=== PATIENT | female | born 1980 | race Caucasian/White ===

== ENCOUNTER 2016-08-21 18:15 | Emergency (ER) | payer MEDICAID ==
[~2016-08-21] VITALS: Ht 154.9 cm; Wt 52.3 kg
[~2016-08-21 18:15] MED LIST: ASPIRIN 32325 MG/TAB PO; ATIVAN0.5 MG PO; BCP TD; CALCIUM WITH VI1 TA1 PO; CATAPRES-TTS 10.1 M1 TD; COLACE 100100 MG/CAP PO; DAZIDOX10 MG PO; DEPAKOTE 250MG250 MG PO; DUO-KAPS1 CAP PO; FERROUS SU325 MG/TAB PO; FISH OIL 1000MG1 CAP PO; FLOMAX 0.40.4 MG/CAP PO; FOLIC ACID 11 MG/TA1 PO; FOLIC ACID PO; IRON325 M2 PO; KLOR-CON 1010 MEQ PO; KLOR-CON SPRINK8 MEQ PO; LIPITOR 10MG10 MG PO; LOPRESSOR 550 MG/TAB PO; LYRICA 50MG CAP50 MG PO; MACRODANTIN100 PO; MAG-OX 400400 MG/TAB PO; MAGNESI PO; MAGOX 400241.3 MG PO; MONISTAT 7 VAG45 GM VG; NICODERM C21 MG/PATC TD; NICODERM C21 MG/PATC TOP; NO HOME MEDICATIONS; OMEGA 31000 MG PO; OXY IR5 MG PO; PRILOSEC 20MG20 MG PO; REMERON30 MG PO; RISPERDAL M-TA0.5 MG PO; ROXICODONE 55 MG/TAB PO; ROXICODONE15 MG PO; THIAMINE 1100 MG/TAB PO; TOPAMAX50 MG PO; TYLENOL 500MG500 MG PO; ULTRAM 50MG TAB50 MG PO; VITAMIN C500 MG PO; VITAMIN D 50,1.25 MG PO; VITAMIN D32000 I1 PO; VITB PO; ZOFRAN ODT4 MG PO; ZOLOFT 50MG50 MG PO; [UNRECOGNIZED DRUG - OTHER] PO; [UNRECOGNIZED DRUG - OTHER] PO; [UNRECOGNIZED DRUG - OTHER] PO; [UNRECOGNIZED DRUG - OTHER] PO
[2016-08-21 18:26] VITALS: TEMP 99
[2016-08-21 18:52] VITALS: BP 119/75; PULSE 100
== END 2016-08-21 18:56 | disposition home or self-care (01) ==
LOC: COL.ER 18:15
DX: F32.9 Major depressive disorder, single episode, unspecified (principal); I10 Essential (primary) hypertension; F17.210 Nicotine dependence, cigarettes, uncomplicated

== ENCOUNTER 2016-08-31 22:19 | Emergency (ER) | payer MEDICAID ==
[~2016-08-31] VITALS: Ht 154.9 cm; Wt 52.3 kg
[2016-08-31 22:32] VITALS: BP 115/69; PULSE 81; TEMP 98.3
== END 2016-08-31 23:35 | disposition home or self-care (01) ==
LOC: COL.ER 22:19
DX: F10.20 Alcohol dependence, uncomplicated (principal)

== ENCOUNTER 2017-06-17 18:44 | Inpatient (IN) | payer MEDICAID ==
[~2017-06-17] VITALS: Ht 154.9 cm; Wt 52.6 kg
[2017-06-17 22:33] VITALS: BP 121/92; PULSE 118; TEMP 98.5
[2017-06-17 23:12] LABS: BASO % 0.3 % (0.0-2.0); GRAN # 4.7 (1.4-6.5); GRAN % 61.2 % (42.2-75.2); LYMPH # 2.4 (1.2-3.4); LYMPH % 31.2 % (20.0-51.0); MEAN CELL VOLUME 113 fl (80.0-100.0); MEAN CORPUSCULAR HGB CONC 33 g/dl (33.0-37.0); MONO # 0.5 (0.1-0.6); MONO % 6.9 % (1.7-9.3); PLATELET COUNT 203 K/mm3 (130-400); RED BLOOD COUNT 2.38 M/mm3 (4.10-5.30); REDCELL DISTRIBUTION WIDTH-CV 17.5 % (11.5-14.5)
[2017-06-17 23:16] LABS: HEMATOCRIT 26.8 % (37.0-47.0); HEMOGLOBIN 8.9 g/dl (12.5-16.0); MEAN CORPUSCULAR HEMOGLOBIN 37 pg (27.0-31.0)
[2017-06-17 23:19] LABS: ALBUMIN 2.1 gm/dL (3.5-5.0); BILIRUBIN,TOTAL 3.5 mg/dL (0.0-1.0); CALCIUM 7.4 mg/dL (8.4-10.2); CREATININE, serum 0.46 mg/dL (0.52-1.25); POTASSIUM 3.4 mmol/L (3.4-5.0)
[2017-06-17 23:21] LABS: INR 1.2 (0.8-3.0); PROTHROMBIN TIME 14.3 SECONDS (9.7-12.8)
[2017-06-17 23:23] LABS: PARTIAL THROMBOPLASTIN TIME 36.4 SECONDS (26.0-37.0)
[2017-06-17 23:47] LABS: ARTERIAL BLD GAS O2 SATURATION 95.3 % (92-100); ARTERIAL BLD GAS TCO2 CT 22.4; ARTERIAL BLOOD GAS BASE EXCESS 1.4 (-2-2); ARTERIAL BLOOD GAS HCO3 21.7 meq/L (22-26); ARTERIAL BLOOD GAS PCO2 22.6 mmHg (35-45); ARTERIAL BLOOD GAS PO2 76.7 mmHg (80-100)
[2017-06-18 01:22] VITALS: BP 100/61; PULSE 135; TEMP 99.7
[2017-06-18 03:19] LABS: BASO % 0.3 % (0.0-2.0); GRAN # 5.3 (1.4-6.5); GRAN % 72.8 % (42.2-75.2); LYMPH # 1.2 (1.2-3.4); LYMPH % 16.8 % (20.0-51.0); MEAN CELL VOLUME 113 fl (80.0-100.0); MEAN CORPUSCULAR HGB CONC 33 g/dl (33.0-37.0); MONO # 0.7 (0.1-0.6); MONO % 9.6 % (1.7-9.3); PLATELET COUNT 167 K/mm3 (130-400); RED BLOOD COUNT 2.06 M/mm3 (4.10-5.30)
[2017-06-18 03:20] LABS: HEMATOCRIT 23.3 % (37.0-47.0); HEMOGLOBIN 7.6 g/dl (12.5-16.0); MEAN CORPUSCULAR HEMOGLOBIN 37 pg (27.0-31.0)
[2017-06-18 03:30] LABS: CALCIUM 7.1 mg/dL (8.4-10.2); CREATININE, serum 0.5 mg/dL (0.52-1.25); MAGNESIUM 1.3 mg/dL (1.6-2.3); PHOSPHOROUS 3.3 mg/dL (2.5-4.5); POTASSIUM 3.3 mmol/L (3.4-5.0)
[2017-06-18 05:55] VITALS: BP 107/75; PULSE 128; TEMP 100
[2017-06-18 08:05] LABS: COLLECTION METHOD CLEAN CATCH
[2017-06-18 08:09] VITALS: BP 101/69; PULSE 122; TEMP 98.2
[2017-06-18 08:14] LABS: MUCOUS Present /lpf; PH 7 (5-8); URINE APPEARANCE Clear; URINE BACTERIA Rare /hpf; URINE BILIRUBIN Positive (NEGATIVE); URINE BLOOD Negative (NEGATIVE); URINE COLOR Amber; URINE GLUCOSE Negative (NEGATIVE); URINE KETONE Negative (NEGATIVE); URINE LEUKOCYTE ESTERASE Trace (NEGATIVE); URINE NITRATE Negative (NEGATIVE); URINE PROTEIN(semi-quant) 1+ (NEGATIVE); URINE UROBILINOGEN >=4.0 mg/dL (NEGATIVE)
[2017-06-18 08:29] LABS: TRICYCLIC ANTIDEPRESS URINE NEGATIVE
[2017-06-18 09:52] VITALS: BP 101/70; PULSE 128; TEMP 98.7
[2017-06-18 12:44] LABS: ALBUMIN 2.1 gm/dL (3.5-5.0); BILIRUBIN,TOTAL 4.6 mg/dL (0.0-1.0); CALCIUM 7.5 mg/dL (8.4-10.2); CREATININE, serum 0.5 mg/dL (0.52-1.25); POTASSIUM 3.9 mmol/L (3.4-5.0); TOTAL PROTEIN 6.1 gm/dL (6.4-8.2)
[2017-06-18 14:48] LABS: FOLATE (FOLIC ACID) 6.9 ng/mL (7.0-31.4)
[2017-06-18 16:00] VITALS: BP 121/79; PULSE 115; TEMP 98.7
[2017-06-18 20:00] VITALS: BP 116/81; PULSE 108; TEMP 97.9
[2017-06-19] VITALS (10 sets, daily range): BP systolic 88–127; BP diastolic 61–83; PULSE 91–122; TEMP 97.7–98.9
[2017-06-19 07:15] LABS: BASO % 0.2 % (0.0-2.0); EOS % 0.5 % (0-4.0); GRAN # 2.6 (1.4-6.5); GRAN % 62.3 % (42.2-75.2); LYMPH # 1.3 (1.2-3.4); MEAN CORPUSCULAR HGB CONC 32 g/dl (33.0-37.0); MEAN PLATELET VOLUME 11.5 fl (7.4-10.4); MONO # 0.3 (0.1-0.6); MONO % 6.5 % (1.7-9.3); PLATELET COUNT 135 K/mm3 (130-400); REDCELL DISTRIBUTION WIDTH-CV 17.5 % (11.5-14.5)
[2017-06-19 07:18] LABS: HEMATOCRIT 22.4 % (37.0-47.0); HEMOGLOBIN 7.2 g/dl (12.5-16.0); MEAN CELL VOLUME 118 fl (80.0-100.0); MEAN CORPUSCULAR HEMOGLOBIN 38 pg (27.0-31.0)
[2017-06-19 07:29] LABS: ALBUMIN 1.8 gm/dL (3.5-5.0); BILIRUBIN,TOTAL 3.6 mg/dL (0.0-1.0); CALCIUM 7.5 mg/dL (8.4-10.2); CREATININE, serum 0.55 mg/dL (0.52-1.25); MAGNESIUM 1.9 mg/dL (1.6-2.3); TOTAL PROTEIN 5.6 gm/dL (6.4-8.2)
[2017-06-20] VITALS (13 sets, daily range): BP systolic 99–120; BP diastolic 65–87; PULSE 87–115; TEMP 95.7–98.5
[2017-06-20 07:51] LABS: MEAN CELL VOLUME 120 fl (80.0-100.0); MEAN CORPUSCULAR HGB CONC 31 g/dl (33.0-37.0); MEAN PLATELET VOLUME 11.8 fl (7.4-10.4); PLATELET COUNT 140 K/mm3 (130-400); RED BLOOD COUNT 1.83 M/mm3 (4.10-5.30); REDCELL DISTRIBUTION WIDTH-CV 17.6 % (11.5-14.5)
[2017-06-20 07:55] LABS: HEMOGLOBIN 6.8 g/dl (12.5-16.0); MEAN CORPUSCULAR HEMOGLOBIN 37 pg (27.0-31.0)
[2017-06-20 10:43] LABS: ANISOCYTOSIS 2+; BAND 35 % (0-10); BASOPHIL 1 % (0-2); LYMPHOCYTE 32 % (20.0-51.0); NEUTROPHILS 32 % (42.0-75.2); PLATELET ESTIMATE NORMAL (NORMAL)
[2017-06-20 10:44] LABS: HYPOCHROMIA 1+
[2017-06-21] VITALS (10 sets, daily range): BP systolic 100–134; BP diastolic 70–89; PULSE 68–118; TEMP 98.1–98.6
[2017-06-21 06:45] LABS: BASO % 0.2 % (0.0-2.0); EOS % 0.7 % (0-4.0); GRAN # 2.4 (1.4-6.5); GRAN % 54.1 % (42.2-75.2); LYMPH # 1.5 (1.2-3.4); LYMPH % 34.4 % (20.0-51.0); MEAN CORPUSCULAR HGB CONC 32 g/dl (33.0-37.0); MEAN PLATELET VOLUME 11.4 fl (7.4-10.4); MONO # 0.4 (0.1-0.6); MONO % 10.1 % (1.7-9.3); PLATELET COUNT 140 K/mm3 (130-400); RED BLOOD COUNT 2.27 M/mm3 (4.10-5.30); REDCELL DISTRIBUTION WIDTH-CV 21.8 % (11.5-14.5)
[2017-06-21 06:55] LABS: HEMATOCRIT 25.8 % (37.0-47.0); HEMOGLOBIN 8.3 g/dl (12.5-16.0); MEAN CELL VOLUME 114 fl (80.0-100.0); MEAN CORPUSCULAR HEMOGLOBIN 37 pg (27.0-31.0)
[2017-06-21 06:56] LABS: ALBUMIN 2.1 gm/dL (3.5-5.0); BILIRUBIN,TOTAL 2.5 mg/dL (0.0-1.0); CALCIUM 7.8 mg/dL (8.4-10.2); CREATININE, serum 0.47 mg/dL (0.52-1.25); POTASSIUM 3.5 mmol/L (3.4-5.0); TOTAL PROTEIN 5.9 gm/dL (6.4-8.2)
[2017-06-22 00:11] VITALS: BP 114/82; PULSE 78; TEMP 98.5
[2017-06-22 04:36] VITALS: BP 108/69; PULSE 76; TEMP 98.2
[2017-06-22 06:53] LABS: HEMATOCRIT 27.6 % (37.0-47.0); HEMOGLOBIN 8.8 g/dl (12.5-16.0)
[2017-06-22 08:13] VITALS: BP 113/75; PULSE 76; TEMP 97.6
[2017-06-22 10:14] VITALS: BP 112/74; PULSE 95; TEMP 98
[2017-06-22] MEDS ORDERED: FERROUS SU325 MG/TAB PO (13:11)
[2017-06-22] MEDS ORDERED: VITAMIN C500 MG PO (13:13)
[2017-06-22] MEDS ORDERED: ASPIRIN 32325 MG/TA1 PO (13:14)
[2017-06-22 13:47] VITALS: BP 118/80; PULSE 77; TEMP 98.1
[2017-06-22] MEDS ORDERED: IPRATROPIUM BROM3 M1 IH (16:37)
[2017-06-22] MEDS ORDERED: NICODERM C21 MG/PATC TD (16:38)
[2017-06-22] MEDS ORDERED: ROXICODONE 55 MG/TAB PO (16:40)
== END 2017-06-22 18:55 | DRG 854 ==
LOC: SURG 18:44
PROVIDERS: Family Medicine; Internal Medicine; Nurse Practitioner Family; Orthopaedic Surgery Sports Medicine
PROC: 0Y6J0Z1 Detachment at Left Lower Leg, High, Open Approach (ICD-10-PCS; principal; 2017-06-18 16:30)
DX: A41.9 Sepsis, unspecified organism (principal); M86.172 Other acute osteomyelitis, left ankle and foot; E87.1 Hypo-osmolality and hyponatremia; E44.0 Moderate protein-calorie malnutrition; E87.3 Alkalosis; D62 Acute posthemorrhagic anemia; I10 Essential (primary) hypertension; Z98.84 Bariatric surgery status; F31.9 Bipolar disorder, unspecified; F17.210 Nicotine dependence, cigarettes, uncomplicated; E87.6 Hypokalemia; E83.42 Hypomagnesemia; F10.20 Alcohol dependence, uncomplicated
CPT/HCPCS: 99222-AI; 99223-AI; 99231-AI; 99232-AI; 99239; J0690; J1885; J2060; J2250; J2270; J2370; J2405; J2543; J2550; J2704; J3010; J3370; J3475; J3480; J7050; J7120; P9016

== ENCOUNTER 2017-06-22 16:45 | Inpatient (IN) | payer MEDICAID ==
[~2017-06-22] VITALS: Ht 154.9 cm; Wt 45.7 kg
[~2017-06-22 16:45] MED LIST changes: +ASPIRIN 32325 MG/TA1 PO; +IPRATROPIUM BROM3 M1 IH
[2017-06-22 19:39] VITALS: BP 114/79; PULSE 86; TEMP 98.2
[2017-06-23 06:22] VITALS: BP 112/74; PULSE 62; TEMP 97.9
[2017-06-23 18:52] VITALS: BP 121/79; PULSE 87; TEMP 98
[2017-06-24 06:26] VITALS: BP 103/75; PULSE 68; TEMP 97.8
[2017-06-24 06:45] LABS: MEAN CORPUSCULAR HGB CONC 31 g/dl (33.0-37.0); MEAN PLATELET VOLUME 11.5 fl (7.4-10.4); PLATELET COUNT 200 K/mm3 (130-400); RED BLOOD COUNT 2.37 M/mm3 (4.10-5.30); REDCELL DISTRIBUTION WIDTH-CV 20.6 % (11.5-14.5)
[2017-06-24 06:56] LABS: BILIRUBIN,TOTAL 1.2 mg/dL (0.0-1.0); CALCIUM 7.7 mg/dL (8.4-10.2); CREATININE, serum 0.54 mg/dL (0.52-1.25); MAGNESIUM 1.9 mg/dL (1.6-2.3); POTASSIUM 3.4 mmol/L (3.4-5.0); TOTAL PROTEIN 5.7 gm/dL (6.4-8.2)
[2017-06-24 06:57] LABS: HEMATOCRIT 28.3 % (37.0-47.0); HEMOGLOBIN 8.8 g/dl (12.5-16.0); MEAN CELL VOLUME 119 fl (80.0-100.0); MEAN CORPUSCULAR HEMOGLOBIN 37 pg (27.0-31.0)
[2017-06-24 08:18] LABS: BAND 6 % (0-10); HYPOCHROMIA 1+; LYMPHOCYTE 59 % (20.0-51.0); NEUTROPHILS 29 % (42.0-75.2); PLATELET ESTIMATE NORMAL (NORMAL)
[2017-06-24 08:19] LABS: ANISOCYTOSIS 1+
[2017-06-24 20:56] VITALS: BP 105/74; PULSE 70; TEMP 98.3
[2017-06-25 06:28] VITALS: BP 114/68; PULSE 61; TEMP 98.4
[2017-06-25 17:16] VITALS: BP 117/85; PULSE 86; TEMP 98.2
[2017-06-26 03:43] VITALS: BP 106/65; PULSE 70; TEMP 97.7
[2017-06-26 18:30] VITALS: BP 105/74; PULSE 80; TEMP 97.7
[2017-06-27 04:39] VITALS: BP 107/52; PULSE 55; TEMP 98.4
[2017-06-27 15:56] VITALS: BP 135/89; PULSE 60; TEMP 97.8
[2017-06-28 04:29] VITALS: BP 138/67; PULSE 54; TEMP 98.2
[2017-06-28 16:53] VITALS: BP 104/73; PULSE 93; TEMP 99.2
[2017-06-29 04:40] VITALS: BP 124/70; PULSE 55; TEMP 98.5
[2017-06-29 07:03] LABS: BASO % 1.1 % (0.0-2.0); EOS # 0.1 (0.0-0.7); EOS % 1.4 % (0-4.0); GRAN # 1.1 (1.4-6.5); GRAN % 29.6 % (42.2-75.2); LYMPH % 55.2 % (20.0-51.0); MEAN CELL VOLUME 119 fl (80.0-100.0); MEAN CORPUSCULAR HGB CONC 31 g/dl (33.0-37.0); MEAN PLATELET VOLUME 10.9 fl (7.4-10.4); MONO # 0.4 (0.1-0.6); MONO % 12.4 % (1.7-9.3); PLATELET COUNT 262 K/mm3 (130-400); RED BLOOD COUNT 2.77 M/mm3 (4.10-5.30); REDCELL DISTRIBUTION WIDTH-CV 17.8 % (11.5-14.5)
[2017-06-29 07:24] LABS: CALCIUM 8.7 mg/dL (8.4-10.2); CREATININE, serum 0.53 mg/dL (0.52-1.25); POTASSIUM 3.7 mmol/L (3.4-5.0)
[2017-06-29 07:25] LABS: HEMOGLOBIN 10.2 g/dl (12.5-16.0); MEAN CORPUSCULAR HEMOGLOBIN 37 pg (27.0-31.0)
[2017-06-29 10:05] VITALS: BP 115/72; PULSE 80
[2017-06-29 15:22] VITALS: BP 106/78; PULSE 86; TEMP 99.4
[2017-06-30 04:26] VITALS: BP 107/43; PULSE 75; TEMP 98.4
[2017-06-30 18:40] VITALS: BP 110/88; PULSE 93; TEMP 98.6
[2017-07-01 03:01] VITALS: BP 146/99; PULSE 66; TEMP 98.6
[2017-07-01] MEDS ORDERED: CLARITIN 1010 MG/TAB PO (12:37)
[2017-07-01] MEDS ORDERED: FLEXERIL 1010 MG/TAB PO (12:37)
[2017-07-01] MEDS ORDERED: TYLENOL 325MG325 MG PO (12:39)
[2017-07-01] MEDS ORDERED: ROXICODONE 55 MG/TAB PO (12:40)
== END 2017-07-01 15:50 | disposition home health service (06) | DRG 947 ==
PROVIDERS: Internal Medicine
DX: R53.81 Other malaise (principal); A41.9 Sepsis, unspecified organism; M86.172 Other acute osteomyelitis, left ankle and foot; E87.1 Hypo-osmolality and hyponatremia; E46 Unspecified protein-calorie malnutrition; Z68.1 Body mass index [BMI] 19.9 or less, adult; Z47.81 Encounter for orthopedic aftercare following surgical amputation; E11.69 Type 2 diabetes mellitus with other specified complication; F17.210 Nicotine dependence, cigarettes, uncomplicated; D50.0 Iron deficiency anemia secondary to blood loss (chronic); F10.10 Alcohol abuse, uncomplicated; E87.6 Hypokalemia; E83.42 Hypomagnesemia; J20.9 Acute bronchitis, unspecified
CPT/HCPCS: 99222-AI; 99232-AI; 99239

== ENCOUNTER → 2017-08-07 | Outpatient (CLI) | payer MEDICAID ==
[~2017-08-07] MED LIST changes: +CLARITIN 1010 MG/TAB PO; +FLEXERIL 1010 MG/TAB PO; +TYLENOL 325MG325 MG PO
== END ==
LOC: COL.RAD 09:45
DX: K80.20 Calculus of gallbladder without cholecystitis without obstruction (principal); K83.8 Other specified diseases of biliary tract; R79.89 Other specified abnormal findings of blood chemistry; K76.0 Fatty (change of) liver, not elsewhere classified; R16.0 Hepatomegaly, not elsewhere classified
CPT/HCPCS: A9585

== ENCOUNTER → 2017-09-04 | Outpatient (CLI) | payer MEDICAID ==
[~2017-09-04] VITALS: Ht 154.9 cm; Wt 44.8 kg
[2017-09-04] VITALS (10 sets, daily range): BP systolic 113–158; BP diastolic 77–109; PULSE 104–119
[~2017-09-04] MED LIST changes: +LYRICA 25MG CAP25 MG PO; +NEURONTIN300 MG/CAP PO
[2017-09-04 09:18] LABS: INR 1.1 (0.8-3.0); PROTHROMBIN TIME 12.2 SECONDS (9.7-12.8)
== END ==
LOC: COL.RAD 08:44
PROVIDERS: Physician Assistant
DX: K76.0 Fatty (change of) liver, not elsewhere classified (principal); K80.20 Calculus of gallbladder without cholecystitis without obstruction; R16.0 Hepatomegaly, not elsewhere classified; Z89.619 Acquired absence of unspecified leg above knee; Z98.84 Bariatric surgery status

== ENCOUNTER 2018-07-21 17:34 | Emergency (ER) | payer MEDICAID ==
[~2018-07-21] VITALS: Ht 154.9 cm; Wt 34.1 kg
[2018-07-21 17:38] VITALS: TEMP 98
[2018-07-21 17:58] LABS: EOS # 0.1 (0.0-0.7); EOS % 2.2 % (0-4.0); GRAN # 1.4 (1.4-6.5); HEMOGLOBIN 12.9 g/dl (12.5-16.0); LYMPH # 1.3 (1.2-3.4); LYMPH % 42.7 % (20.0-51.0); MEAN CELL VOLUME 104 fl (80.0-100.0); MEAN CORPUSCULAR HEMOGLOBIN 35 pg (27.0-31.0); MEAN CORPUSCULAR HGB CONC 34 g/dl (33.0-37.0); MEAN PLATELET VOLUME 10.3 fl (7.4-10.4); MONO # 0.4 (0.1-0.6); MONO % 11.1 % (1.7-9.3); PLATELET COUNT 161 K/mm3 (130-400); RED BLOOD COUNT 3.64 M/mm3 (4.10-5.30); REDCELL DISTRIBUTION WIDTH-CV 12.9 % (11.5-14.5)
[2018-07-21 18:07] LABS: ALANINE AMINOTRANSFERASE 36 U/L (9-52); ALBUMIN 3.7 gm/dL (3.5-5.0); ALKALINE PHOSPHATASE 164 U/L (50-136); ANION GAP 8 mmol/L (7-16); AST,SGOT 42 U/L (15-37); BILIRUBIN,TOTAL 0.7 mg/dL (0.0-1.0); BLOOD UREA NITROGEN 6 mg/dL (7-17); CALCIUM 9.4 mg/dL (8.4-10.2); CARBON DIOXIDE 26 mmol/L (22-30); CHLORIDE 103 mmol/L (98-107); CREATININE, serum 0.46 mg/dL (0.52-1.25); GLUCOSE 112 mg/dL (74-106); LIPASE 26 U/L (23-300); MAGNESIUM 1.5 mg/dL (1.6-2.3); POTASSIUM 3.3 mmol/L (3.4-5.0); SODIUM 137 mmol/L (137-145); TOTAL PROTEIN 7.1 gm/dL (6.4-8.2)
[2018-07-21 18:18] LABS: ALCOHOL(ethanol),MEDICAL < 10 mg/dL
[2018-07-21] MEDS ORDERED: ZOFRAN ODT4 MG PO (19:43)
[2018-07-21 20:03] VITALS: BP 150/97; PULSE 83
== END 2018-07-21 20:05 | disposition home or self-care (01) ==
LOC: COL.ER 17:34
PROVIDERS: Emergency Medicine
DX: R19.7 Diarrhea, unspecified (principal); R11.2 Nausea with vomiting, unspecified; E11.9 Type 2 diabetes mellitus without complications; F17.210 Nicotine dependence, cigarettes, uncomplicated; F31.9 Bipolar disorder, unspecified; Z98.84 Bariatric surgery status; Z98.890 Other specified postprocedural states
CPT/HCPCS: C9113; J1885; J2405; J2550; J7030

== ENCOUNTER 2020-05-01 01:19 | Emergency (ER) | payer MEDICAID ==
[~2020-05-01] VITALS: Ht 154.9 cm; Wt 43.2 kg
[2020-05-01 01:25] VITALS: BP 112/77; PULSE 81; TEMP 98.4
== END 2020-05-01 02:20 | disposition home or self-care (01) ==
LOC: COL.ER 01:19
DX: F10.129 Alcohol abuse with intoxication, unspecified (principal); T69.9XXA Effect of reduced temperature, unspecified, initial encounter

== ENCOUNTER 2020-07-05 21:36 | Emergency (ER) | payer MEDICAID ==
[~2020-07-05] VITALS: Wt 45.5 kg
[2020-07-05 22:01] VITALS: TEMP 98.5
[2020-07-05 22:51] LABS: BASO % 0.5 % (0.0-2.0); EOS # 0.1 (0.0-0.7); EOS % 1.5 % (0-4.0); GRAN % 49.2 % (42.2-75.2); HEMOGLOBIN 11.1 g/dl (12.5-16.0); LYMPH # 2.3 (1.2-3.4); LYMPH % 38.2 % (20.0-51.0); MEAN CELL VOLUME 91 fl (80.0-100.0); MEAN CORPUSCULAR HEMOGLOBIN 27 pg (27.0-31.0); MEAN CORPUSCULAR HGB CONC 30 g/dl (33.0-37.0); MEAN PLATELET VOLUME 9.6 fl (7.4-10.4); MONO # 0.6 (0.1-0.6); MONO % 10.3 % (1.7-9.3); PLATELET COUNT 228 K/mm3 (130-400); RED BLOOD COUNT 4.07 M/mm3 (4.10-5.30)
[2020-07-05 22:53] LABS: HEMATOCRIT 36.9 % (37.0-47.0)
[2020-07-05 23:10] LABS: ALBUMIN 4.1 gm/dL (3.5-5.0); BILIRUBIN,TOTAL 0.3 mg/dL (0.0-1.0); C-REACTIVE PROTEIN 2.6 mg/dL (0.0-0.9); CREATININE, serum 0.5 (0.52-1.25); POTASSIUM 4.1 mmol/L (3.4-5.0); TOTAL PROTEIN 7.6 gm/dL (6.4-8.2)
[2020-07-05] MEDS ORDERED: CEPHALEXIN500 M1 PO (23:39)
[2020-07-06 00:10] VITALS: BP 93/65; PULSE 97
[2020-07-06] MEDS ORDERED: DIFLUCAN150 MG PO (00:12)
== END 2020-07-06 00:10 | disposition home or self-care (01) ==
LOC: COL.ER 21:36
PROVIDERS: Nurse Practitioner Primary Care
DX: L03.116 Cellulitis of left lower limb (principal); F17.200 Nicotine dependence, unspecified, uncomplicated; Z98.84 Bariatric surgery status

== ENCOUNTER 2021-01-05 22:01 | Emergency (ER) | payer MEDICAID ==
[~2021-01-05] VITALS: Ht 160 cm; Wt 50.0 kg
[~2021-01-05 22:01] MED LIST changes: +CEPHALEXIN500 M1 PO; +DIFLUCAN150 MG PO
[2021-01-06] MEDS ORDERED: WHCH (01:52)
[2021-01-06] MEDS ORDERED: TYLENOL 325MG325 MG PO (01:52)
[2021-01-06 03:59] VITALS: BP 139/75; PULSE 121; TEMP 98.3
== END 2021-01-06 03:00 | disposition home or self-care (01) ==
LOC: COL.ER 22:01
DX: F10.129 Alcohol abuse with intoxication, unspecified (principal); R45.851 Suicidal ideations; G61.0 Guillain-Barre syndrome

== ENCOUNTER 2021-08-05 17:25 | Emergency (ER) | payer SELFPAY ==
[~2021-08-05] VITALS: Ht 154.9 cm; Wt 42.7 kg
[~2021-08-05 17:25] MED LIST changes: +WHCH
[2021-08-05 17:48] VITALS: TEMP 97.3
[2021-08-05 19:18] VITALS: BP 147/93; PULSE 94
== END 2021-08-05 19:36 | disposition home or self-care (01) ==
LOC: COL.ER 17:25
DX: J06.9 Acute upper respiratory infection, unspecified (principal); F10.20 Alcohol dependence, uncomplicated; Z20.822 Contact with and (suspected) exposure to COVID-19